=== PATIENT | male | born 1980 | race Caucasian/White ===

== ENCOUNTER 2021-03-10 05:30 | Outpatient (CLI) | payer BC ==
[~2021-03-10] VITALS: Ht 177.8 cm; Wt 101.7 kg
[~2021-03-10 05:30] MED LIST: CEPH500C PO; CITA10TA70 PO; TRZ50T PO
[2021-03-14] MEDS ORDERED: LEVO25CA4 PO (10:06)
[2021-03-14] MEDS ORDERED: LORA-726 PO (10:06)
[2021-03-14] MEDS ORDERED: ERGO1250 PO (10:06)
[2021-03-14] MEDS ORDERED: LORAZEPAM (12:05)
[2021-03-17] MEDS ORDERED: ACHD5005 PO (08:57)
[2021-03-17] MEDS ORDERED: DOCU-143 PO (08:57)
== END 2021-03-14 12:11 | disposition home or self-care (01) ==
LOC: PREOP 05:30
PROVIDERS: ATTEND Surgery
DX: Z01.818 Encounter for other preprocedural examination (principal)

== ENCOUNTER 2021-03-17 05:57 | Day surgery (SDC) | payer BC ==
[2021-03-17] VITALS (10 sets, daily range): BP systolic 128–155; BP diastolic 78–99
[~2021-03-17] VITALS: Ht 177.8 cm; Wt 101.7 kg
[~2021-03-17 05:57] MED LIST changes: +ERGO1250 PO; +LEVO25CA4 PO; +LORA-726 PO; +LORAZEPAM
[2021-03-17] MEDS ORDERED: ceFAZolin 2 GM IV Premixed 50 ML IV ONE (06:15)
[2021-03-17] MEDS: LACTATED RINGERS 1,000 ML IV PRN ×2 (06:24→08:38)
[2021-03-17] MEDS ORDERED: LIDOCAINE PF 2% 5 ML (XYLOCAINE) VIAL ONE (07:06)
[2021-03-17] MEDS ORDERED: fentaNYL INJ 100 MCG/2 ML AMP ONE ×2 (07:06→08:46)
[2021-03-17] MEDS ORDERED: proPOfol 200 MG/20 ML (DIPRIVAN) VIAL IV ONE (07:06)
[2021-03-17] MEDS ORDERED: MIDAZOLAM 2 MG/2 ML (VERSED) VIAL ONE (07:07)
[2021-03-17] MEDS ORDERED: LIDOCAINE/EPI 1%-1:100,000 (XYLOCAINE) 20ML ONE (07:21)
[2021-03-17] MEDS ORDERED: NEOSTIGMINE 3 MG/3 ML VIAL ONE (08:27)
[2021-03-17] MEDS ORDERED: ONDANSETRON 4 MG/2 ML (SDV) Z0FRAN ONE (08:27)
[2021-03-17] MEDS ORDERED: ROCURONIUM 10 MG/ML 5 ML SYRINGE IV ONE (08:27)
[2021-03-17] MEDS ORDERED: GLYCOPYRROLATE 0.2 MG/ML (ROBINUL) 2 ML VIAL ONE (08:27)
--- NOTE | 2021-03-17 08:55 | Progress Note-Post Operative ---
Post-Operative Progess Note Surgeon (s)/Purchasing Administrator (s) Surgeon FALLON ABEL DO Purchasing Administrator: Dr. Goff to assist in retraction dissection and closure. Pre-Operative Diagnosis UMBILICAL HERNIA Post-Operative Diagnosis Incarcerated omentum umbilical hernia Procedure & Operative Findings Date of Procedure 03/17/21 Procedure Performed/Findings PROCEDURE: Laparoscopic incarcerated umbilical hernia repair with mesh. COMPLICATIONS: None. INDICATIONS: The patient is a 40, male with an umbilical hernia, which has continued to increase in size and cause discomfort. The patient was explained the risk and benefits of the procedure and wished to proceed with the procedure. Consent was signed on the chart. DESCRIPTION OF PROCEDURE: The patient was taken into the operating suite, prepped and draped in sterile fashion. Surgical pause was performed. Local anesthetic was infiltrated in left upper quadrant. A 15 blade scalpel was used to make a small skin incision. Cautery was used to dissect down to the fascia, which was then scored and divided the muscle, went through the posterior sheath and a balloon trocar was inserted into the abdomen. The abdomen was then insufflated. Omentum incarcerated through an umbilical defect. A 5 mm trocar was placed in the right lower quadrant and a 5 mm trocar was placed in left lower quadrant. Hook cautery used to take down the incarcerated fat and take fat pad and falciform ligament down. Echo Ventralight mesh was then inserted in the abdomen grabbed through the stab incision. The balloon was inflated on the mesh. Circumferential tacks were placed with a SecureStrap Tacker. The balloon was then removed and inner crown was created as well. The mesh was tacked with pressure being decreased. The 12 mm fascial defect was then closed using 0 Vicryl. The abdomen was then desufflated,the trocars were removed. The skin was then closed using 4-0 Monocryl in a running subcuticular fashion. The abdomen was washed and dried and Skin Affix was placed over the incisions. The patient tolerated procedure well without any complications. She was taken to recovery room in stable condition. Anesthesia Type general Estimated Blood Loss Estimated blood loss (mL): minimal Specimens/Packing Specimens Removed FALLON Fragoso DO Mar 17, 2021 08:55
[2021-03-17] MEDS ORDERED: DOCU-143 PO (08:57)
[2021-03-17] MEDS ORDERED: ACHD5005 PO (08:57)
--- NOTE | 2021-03-17 08:57 | Discharge Inst-Simple/Standard ---
Discharge Inst-Standard Discharge Medications New, Converted or Re-Newed RX: Transmitted to Pharmacy Patient Instructions/Follow Up Plan of Care/Instructions/FU: 2-3 weeks darrel Activity as Tolerated: No Discharge Diet: Regular Diet Other Inst to Patient Follow up Appt: Make appointment for 2 week. Instructions: No lifting greater than 10 pounds. No strenuous activity. May shower in 24 hours, no tub bath or soaking. Use incentive spirometer at home as directed. No Smoking Skin/Wound Care: You have special glue over your incision that will fall off on it's own. You have a bandage in the umbilicus, remove it in 48 hours, leave the glue. Symptoms to Report: Appetite Changes, Extremity Discoloration, Numbness/Tingling, Swelling Increased, Bleeding Excessive, Eyesight Changes, Pain Increased, Urine Color Change, Constipation(Persistent), Fever over 101 degree F, Pain/Pressure in chest, Urinating Difficulty, Cough Up/Vomit Blood, Heart Beat Irreg/Pounding, Pain/Pressure in jaw, Vaginal Bleeding Increase, Cramps in feet or legs, Lightheadedness, Pain/Pressure in shoulder, Diarrhea(Persistent), Memory Changes Suddenly, Questions/Concerns, Weight gain consecutive days, Dizziness/Fainting, Nausea/Vomiting, Shortness of Breath, Weight gain over 2 pounds If questions or concerns contact your physician Or seek help at emergency department. FALLON ABEL DO Mar 17, 2021 08:57
[2021-03-17] MEDS ORDERED: SEVOFLURANE (ULTANE) 15 ML INHAL SOLN ONE (09:05)
--- NOTE | 2021-03-17 09:13 | Anesthesia-General Post-Op ---
General Patient Condition Mental Status/LOC: Same as Preop Cardiovascular: Satisfactory Nausea/Vomiting: Absent Respiratory: Satisfactory Pain: Controlled Complications: Absent Post Op Complications Complications None Follow Up Care/Instructions Patient Instructions None needed. Anesthesia/Patient Condition Patient Condition Patient is doing well, no complaints, stable vital signs, no apparent adverse anesthesia problems. No complications reported per nursing. GABINO SCHMITT CRNA Mar 17, 2021 09:12
[2021-03-17] MEDS ORDERED: HYDROmorphone 2 MG/ML VIAL (DILAUDID) IV ONE (09:15)
[2021-03-17] MEDS ORDERED: ONDANSETRON 4 MG/2 ML (SDV) Z0FRAN IVP PRN (09:15)
[2021-03-17] MEDS ORDERED: HYDROcodone/APAP 5 MG/325 MG (LORTAB) TAB PO ONE ×2 (10:30→10:35)
[2021-03-17] MEDS ORDERED: HYDROcodone/APAP 5 MG/325 MG (LORTAB) TAB ONE (10:31)
== END 2021-03-17 11:30 | disposition home or self-care (01) ==
LOC: SDC 05:57
PROVIDERS: ATTEND Surgery
DX: K42.0 Umbilical hernia with obstruction, without gangrene (principal); I10 Essential (primary) hypertension; E03.9 Hypothyroidism, unspecified; E66.9 Obesity, unspecified; F41.9 Anxiety disorder, unspecified; Z68.32 Body mass index [BMI] 32.0-32.9, adult; Z79.890 Hormone replacement therapy; Z79.899 Other long term (current) drug therapy; Z87.891 Personal history of nicotine dependence
CPT/HCPCS: 49653; 87081; C1781